=== PATIENT | female | born 1995 | race Two or more races ===

== ENCOUNTER 2021-11-05 10:53 | Emergency (ER) | payer OTHER ==
[~2021-11-05] VITALS: Ht 167.6 cm; Wt 72.6 kg
[2021-11-05] MEDS ORDERED: traMADol HCL 50 MG TAB PO ONE (13:15)
[2021-11-05 15:26] VITALS: BP 119/84
== END 2021-11-05 15:28 | disposition home or self-care (01) ==
LOC: EEVIPCON 10:53 → ER 10:53 → EDBD 10:53 → ER 15:28
DX: S80.12XA Contusion of left lower leg, initial encounter (principal); W22.8XXA Striking against or struck by other objects, initial encounter; Y93.89 Activity, other specified; Y92.89 Other specified places as the place of occurrence of the external cause; Y99.8 Other external cause status
CPT/HCPCS: 29515; 73590